=== PATIENT | male | born 1965 ===

== ENCOUNTER 2022-11-02 13:44 | Outpatient (RCR) | payer BC, SELFPAY | END 2023-01-31 23:59 | disposition home or self-care (01) | PROVIDERS: PCP Physician Assistant; Visit Provider Physician Assistant | DX: R29.898 Other symptoms and signs involving the musculoskeletal system (principal); M62.81 Muscle weakness (generalized); Z74.1 Need for assistance with personal care; Z51.89 Encounter for other specified aftercare | CPT/HCPCS: 97163 ==

== ENCOUNTER 2023-08-05 17:12 | Emergency (ER) | payer BC, SELFPAY ==
[2023-08-05 17:29] VITALS: BP 116/80; PULSE 103; RESP 20; TEMP 36.4; O2SAT 95; BMI 30.8
--- NOTE | 2023-08-05 17:53 | ED.GENADULT ---
HPI - General Adult General Time Seen by Provider: 17:53 Date Seen: 08/05/23 Chief complaint: Cough Stated complaint: Cough Time Seen by Provider: 08/05/23 17:53 Source: patient and RN notes reviewed Mode of arrival: ambulatory Limitations: no limitations History of Present Illness HPI narrative: Mr. Barone is a very pleasant 57-year-old gentleman with history of diabetes, hyperlipidemia, arthritis and tobacco use who comes to the emergency room for evaluation of a cough. Patient notes the onset of a cough greater than a week ago with worsening over the past 3 days. He states that at night now he has a hard time sleeping because of the cough. Does not feel that he is wheezing. Has occasionally felt warm but is unsure of a fever. This started with a sore throat and exposure to somebody that he knows with pneumonia. He has not had any diarrhea or vomiting. He denies ear pain or headache at this time. He is able to eat and drink. Very little production with the cough. He has had steroids in the past but for his arthritis and not for any lung issues. He denies a history of heart problems. Related Data Home Medications Medication Instructions Recorded Confirmed aspirin 81 mg chewable tablet 1 tab PO DAILY 08/05/23 08/05/23 metformin 500 mg tablet,extended 1,000 mg PO BID 08/05/23 08/05/23 release 24 hr pravastatin 10 mg tablet 10 mg PO DAILY 08/05/23 08/05/23 Previous Rx's Medication Instructions Recorded albuterol sulfate 90 mcg/actuation 2 inh inhalation Q6H PRN #1 ea 08/05/23 breath activated powder inhaler Allergies Allergy/AdvReac Type Severity Reaction Status Date / Time No Known Drug Allergies Allergy Verified 08/05/23 17:34 Review of Systems Status of ROS: Reports: 10 or more systems reviewed and unremarkable except as noted in History and below Const: Denies: fever, chills or fatigue ENMT: Reports: throat pain (Initially now improving), neck pain (When he cough) and nasal congestion; Denies: difficulty swallowing, hoarseness, ear pain or nasal discharge Cardio: Denies: shortness of breath with exertion Resp: Reports: cough; Denies: shortness of breath or wheezing GI: Denies: abdominal pain, vomiting or difficulty swallowing Musculo: Reports: neck pain (When he cough) Endo: Denies: fatigue Allergy/Immuno: Denies: wheezing PFSH PFSH Social History Smoking Status: Current every day smoker What tobacco products do you use: cigarettes Do you use any of these nicotine containing products: None How often do you have a drink containing alcohol: never How often do you have six or more drinks on one occasion: Never AUDIT-C Alcohol total score: 0 Non-prescribed substance use: denies use Exam Narrative: Exam Narrative: Alert and oriented. Very pleasant gentleman. [employer] . Eyes are clear. TMs bilaterally without erythema or fluid. Normal speech. Oral cavity without erythema or exudate. Moist mucous membranes noted. Heart with regular rate and rhythm. Lungs are clear bilaterally Lower extremity Const: Vital Signs, click to edit/add: Vital Signs - 24 hr 08/05/23 17:29 Temperature 97.6 F Pulse Rate [Pulse Oximeter] 103 H Respiratory Rate 20 Blood Pressure [Ri ght Upper Arm] 116/80 Pulse Oximetry 95 Oxygen Delivery Me thod Room Air Course Course ED Course: Differential diagnosis includes but is not limited to pneumonia, bronchitis, COPD exacerbation, viral respiratory infection, PE. At this time patient notes no length in periods of inactivity, history of DVT and is currently on aspirin daily. He also notes no calf tenderness or swelling. Negative wells criteria Will get chest x-ray at this time. He has tested negative for COVID/influenza/RSV. Will trial albuterol nebulizer. Reevaluation(s) Reevaluation #1: Patient notes he is much better after the nebulizer. Vital Signs Vital signs: Initial Vital Signs Temperature 97.6 F 08/05/23 17:29 Temperature Source Temporal Artery Scan 08/05/23 17:29 Pulse Rate 103 H 08/05/23 17:29 Respiratory Rate 20 08/05/23 17:29 Blood Pressure 116/80 08/05/23 17:29 Blood Pressure Mean 92 08/05/23 17:29 Blood Pressure Position Sitting 08/05/23 17:29 Pulse Oximetry 95 08/05/23 17:29 Oxygen Delivery Method Room Air 08/05/23 17:29 Vital Signs Temperature 97.6 F 08/05/23 17:29 Pulse Rate 103 H 08/05/23 17:29 Respiratory Rate 20 08/05/23 17:29 Blood Pressure 116/80 08/05/23 17:29 Pulse Oximetry 95 08/05/23 17:29 Oxygen Delivery Method Room Air 08/05/23 17:29 Temperature 97.6 F 08/05/23 17:29 Pulse Rate 103 H 08/05/23 17:29 Respiratory Rate 20 08/05/23 17:29 Blood Pressure 116/80 08/05/23 17:29 Pulse Oximetry 95 08/05/23 17:29 Oxygen Delivery Method Room Air 08/05/23 17:29 Medications Administered Medications: Generic Name Dose Route Start Last Admin Trade Name Claudia PRN Reason Stop Dose Admin Albuterol 2.5 mg 08/05/23 18:28 08/05/23 18:42 Albuterol Sulfate 2.5 Mg/3 Ml Vial.Neb NEB 08/05/23 18:29 2.5 mg ONCE ONE Administration Medical Decision Making MDM Narrative Medical decision making narrative: 1. Bronchitis-patient noted significant improvement with nebulizer treatment. I did speak to him about the illness only being 7 days at this point and that his chest x-ray is clear. I do not think he needs antibiotics but given his tobacco history would suggest steroids. He could declines this stating that he does not feel good on steroids. He is certainly not wheezing at this time and his oxygen levels are appropriate. No evidence of pneumonia, he has tested negative for COVID and influenza, he has no current risk factors or symptoms for DVT/PE. This most likely represents a URI induced bronchitis. He is very receptive to albuterol inhaler which will be sent to the pharmacy. Two puffs q.6 hours p.r.n.. He is advised to continue to monitor for worsening symptoms. 2. Tachycardia-normal O2 sats, normalized during his stay here and upon my examination heart rate in the 80s. Denies chest pain or shortness of breath. 3. Disposition-home at this time. Return for worsening symptoms. Medical Records Medical records reviewed: Yes I reviewed the patient's medical records Lab Data Lab results reviewed: Yes I reviewed the patient's lab results Labs: Lab Results 08/05/23 Range/Units 17:25 SARS-CoV-2 (PCR) Negative SARS-CoV-2 (Negative) Influenza Type A (PCR) Negative PCR FLU A (Negative) Influenza Type B (PCR) Negative PCR FLU B (Negative) RSV (PCR) Negative PCR RSV (Negative) Imaging Data Chest x-ray: Attestation: I have reviewed the pertinent imaging results. My impression: By my read, no obvious infiltrate Radiologist's impression: Normal cardiomediastinal silhouette and pulmonary vasculature. Lungs are well inflated. Unchanged 7 mm right upper lung calcified granuloma. No focal consolidation, pleural effusion, or pneumothorax. No acute osseous abnormality. IMPRESSION: No acute findings and no significant changes from the prior exam. Discharge Plan Discharge Clinical Impression: Bronchitis Patient Disposition: Home, Self-Care Condition: Improved Instructions: How to Use a Dry-Powder Inhaler (ED) Additional Instructions: Inhaler as needed. Return to the emergency room if your cough gets worse, you start running a high fever, or you are having a difficult time breathing. Prescriptions: New albuterol sulfate 90 mcg/actuation aerosol powdr breath activated 2 inh inhalation Q6H PRNQty: 1 0RF No Action pravastatin 10 mg tablet 10 mg PO DAILY aspirin 81 mg tablet,chewable 1 tab PO DAILY metformin 500 mg tablet extended release 24 hr 1,000 mg PO BID Follow Up/Referrals: Theresa Hudson PA [Primary Care Provider] - Stand Alone Forms: [employer] Info Instructions
[2023-08-05 18:12] LABS: PCR FLU A Negative PCR FLU A (Negative); PCR FLU B Negative PCR FLU B (Negative); PCR RSV Negative PCR RSV (Negative); SARS PCR* Negative SARS-CoV-2 (Negative)
--- NOTE | 2023-08-05 18:22 | CRLHL7_ITS ---
For Patients: As a result of the Century Cures Act, medical imaging exams and procedure reports are released immediately into your electronic medical record. You may view this report before your referring provider. If you have questions, please contact your health care provider. INDICATION: Cough. TECHNIQUE: Chest 2 views. COMPARISON: 04/28/2019 radiographs. FINDINGS: Normal cardiomediastinal silhouette and pulmonary vasculature. Lungs are well inflated. Unchanged 7 mm right upper lung calcified granuloma. No focal consolidation, pleural effusion, or pneumothorax. No acute osseous abnormality. IMPRESSION: No acute findings and no significant changes from the prior exam. Dictated by Malia Conrad MD @ 08/05/2023 6:54:33 PM (Electronically Signed)
[2023-08-05] MEDS: ALBUTEROL SULFATE 2.5 MG/3 ML VIAL.NEB NEB (18:42)
== END 2023-08-05 19:38 | disposition home or self-care (01) ==
PROVIDERS: Emergency Provider Family Medicine; PCP Physician Assistant
DX: J40 Bronchitis, not specified as acute or chronic (principal)
CPT/HCPCS: 71046; 87631; 94640; 99283; 99284

== ENCOUNTER 2024-12-30 21:20 | Emergency (ER) | payer BC, SELFPAY ==
--- OUTSIDE RECORDS SUMMARY | 2024-12-30 21:22 | XMS_ITS | Clinical Summary ---
Author Organization [facility] Address [address] [place] [address] Care Team Providers Care Blocking Machine Operator Name Role Phone Natalya Pabon M.D. Primary Care Provider Source Comments Patient records contain information from all sites at [facility]. For routine questions regarding patient records, call [phone] during business hours, M-F 8:00 AM - 5:00 PM Central Time. Record requests for emergency care only can be directed to [phone] at any time.[facility] Allergies No known active allergies Medications * This document contains information received from the source organization and may not represent a complete record from that organization. acetaminophen (TYLENOL) 500 mg tablet Take 1-2 tablets by mouth every 6 (six) hours as needed. 4 Active Accu-Chek Guide [facility] 3 Active blood-glucose meter [facility] [place] glucose meter, test strips and lancets covered by the patient insurance. Test 2 times per day. 0 Active Accu-Chek Guide test stripsIndicatio ns:Diabetes Mellitus Type 2 (HCC) 1 test by other route every morning. 100 strip 2 3 Active pravastatin (PRAVACHOL) 10 mg tabletIndicatio ns:Transient Ischemic Attack Take 1 tablet (10 mg total) by mouth daily. 90 tablet 3 3 Active aspirin 81 mg chewable tabletIndicatio ns:Transient Ischemic Attack Chew 1 tablet (81 mg total) daily. 90 tablet 3 3 Active metFORMIN XR (GLUCOPHAGE-XR) 500 mg 24 hr tabletIndicatio ns:Diabetes Mellitus Type 2 (HCC) Take 2 tablets (1,000 mg total) by mouth 2 (two) times a day with meals. 360 tablet 3 3 Active empagliflozin (Jardiance) 10 mg tabletIndicatio ns:Diabetes Mellitus Type 2 (HCC) Take 1 tablet (10 mg total) by mouth every morning before breakfast. 90 tablet 3 Active Accu-Chek Softclix Lancets lancets Use once daily in the morning 100 each 3 3 Active imiquimod (ALDARA) 5 % creamIndication s:Condyloma Acuminatum Apply 1 packet topically 3 (three) times a week. Wash hands prior to and following application. Apply thin layer over each wart that should be left on skin a minimum of 6-10 hours then the skin can be cleaned with soap. Use the cream until total clearance of warts or for a maximum of 16 weeks. 12 each 3 3 Active lisinopriL (PRINIVIL,ZESTR IL) 2.5 mg tabletIndicatio ns:Diabetes Mellitus Type 2 (HCC) Take 1 tablet (2.5 mg total) by mouth daily. 90 tablet 3 4 Active Active Problems Problem Noted Date Diagnosed Date Acute Disseminated Demyelination Unspecified Assessment & Plan (09/05/2023 11:13 AM MEDICAL CERTIFICATION SPECIALIST): Patient was seen by neurology who placed a referral to the peripheral nerve clinic. Assessment & Plan (06/05/2023 8:18 AM MEDICAL CERTIFICATION SPECIALIST): Patient is being followed by Neurology Nicotine Dependence Cigarettes 04/17/2023 Overview (04/17/2023): In conjunction with vaping Diverticulitis Of Large Inte sophie With Perforation And Abscess Without Bleeding 12/12/2022 12/12/2022 Dependence Polysubstance Remission 09/21/2022 12/12/2022 Assessment & Plan (09/05/2023 11:06 AM MEDICAL CERTIFICATION SPECIALIST): Patient states that he is still sober and in remission Assessment & Plan (12/12/2022 9:18 AM CDT): Patient had meth abuse, but has been sober for 94 days as of 12/12/22 Abscess Intestinal 02/25/2022 12/12/2022 Diabetes Mellitus Type 2 02/13/2022 023 Diverticulitis 02/13/2022 12/12/2022 Dysfunction Erectile 05/23/2018 12/12/2022 Unilateral Primary Osteoarth ritis First Carpometacarpal Joint Left 04/02/2018 12/12/2022 Overview (12/12/2022): 2015: Dr. John Mccauley did [facility] Joint injection, 1-2 month benefit. 2018: Dr. Calvillo did [facility] Joint injection. Alcohol Mild Use Disorder (Abuse) Uncomplicated 06/22/2014 12/12/2022 Depression 06/22/2014 12/12/2022 Fatigue 06/22/2014 12/12/2022 Assessment & Plan (09/05/2023 11:06 AM MEDICAL CERTIFICATION SPECIALIST): Due to grandchildren not letting him sleep Encounters * This document contains information received from the source organization and may not represent a complete record from that organization. Date Type Department Care Team Description 12/29/2024 Orders Only Department of Pulmonary Medicine in [place], [place] [address] [place] [address] Anderson Caceres M.D. 11/17/2024 Orders Only [facility] Natalya Portillo M.D. Diabetes Mellitus Type 2 (HCC) from Last 3 Months Immunizations Immunization Administration Dates Next Due Influenza, Injectable, Quadrivalent 01/2022,10/13/2021,04/28/2019,2014 RZV (SHINGRIX) 01/23/2022,10/18/2021 Rubella 09/09/1969 Td (Adult), adsorbed 11/02/2021,12/07/2010,09/22 Td, adsorbed, preservative f ree, (Adult) Unspecified 10/13/2021 Tdap 06/14/2010 influenza vaccine quad (FLUZONE/FLUARIX) (6 months and older)(PF) 05/18/2021,05/07/2018 Social History Tobacco Use Types Packs/Day Years Used Date Smoking Tobacco: Every Day Cigarettes 0.8 40 Started: 12/13/1984 Passive Smoke Exposure: Current Smokeless Tobacco: Former Chew Quit: 01/12/1986 Tobacco Cessation:Ready to Q uit: Not Asked; Counseling Given: Not Answered Comments:Tapered to 7 rolled cpd the past 2 weeks, vaping refillable n salt e- cig, 1 btl lasting over 1 month. Alcohol Use Standard Drinks/Week Comments Not Currently 44 (1 standard drink = 0.6 oz pu re alcohol) PHQ-2 Answer Date Recorded PHQ-2 Score 5 09/01/2023 Depression Answer Date Recor ded PHQ-9 Total Score (max 27) 8 09/01 Nutrition Answer Date Recorded Nutrition: EVOO Fat Source Unknown 09/14 Nutrition: Servings of Fruits/Vegetables per Day Not on file 09/14/2020 Dental Answer Date Recorded Dental: Regular Dentist Unknown 09/15/19 21 Sex and Gender Information Value Date Recorded Sex Assigned at Male 12/12/2022 8:25 AM CDT Legal Sex Male 10:44 PM MEDICAL CERTIFICATION SPECIALIST Gender Identity Male 12/12/2022 8:25 AM CDT Sexual Orientation Straight 12/12/2022 8: 25 AM CDT Last Filed Vital Signs Vital Sign Reading Time Taken Comments Blood Pressure 132/89 09/05/2023 10:46 AM MEDICAL CERTIFICATION SPECIALIST Pulse 95 09/05/2023 10:46 AM MEDICAL CERTIFICATION SPECIALIST Temperature 36.8 C (98.3 F) 06/05/2023 7:48 AM MEDICAL CERTIFICATION SPECIALIST Respiratory Rate 18 04/30/2017 1:40 AM CDT Oxygen Saturation - - Inhaled Oxygen Concentration - - Weight 92.1 kg (203 lb 0.7 oz) 09/05/2023 10:46 AM MEDICAL CERTIFICATION SPECIALIST Height 179 cm (5' 10.47) 07/04/2023 1:54 PM MEDICAL CERTIFICATION SPECIALIST Body Mass Index 28.74 07/04/2023 1:54 PM MEDICAL CERTIFICATION SPECIALIST Plan of Treatment Health Maintenance Due Date Last Done Comments CT Colonography 1966 Cologuard 1966 Dilated Eye Exam 1966 FIT 1966 Hepatitis C Screening 1966 Lung Cancer Screening 1966 Hepatitis B Vaccines (1 of 3 - 19+ 3-dose series) 1985 Pneumococcal vaccine (50+ years) (1 of 2 - PCV) 1985 Lipid (Cholesterol) Screening 01/15/2024 01/14/2023, 09/21/2022 Hemoglobin A1C 03/05/2024 09/05/2023, 05/16, 01/14/2023, Additional history exists COVID-19 Vaccine ( season) 2024 09/21/2022, 03/12/2022, 09/08/2021, Additional history exists Urine Albumin 04/03/2024 04/03/2023 Influenza Vaccine (#1) 2024 , 10/13/2021, 05/18/2021, Additional history exists Depression Screening (Annual PHQ-2) 07/15/2024 Creatinine Level (Kidney Function Test) 09/05/2024 09/05/2023, 01/29/2023, 01/14/2023, Additional history exists Diabetic Office Visit with Foot Exam 09/05/2024 09/05/2023, 09/05/2023, 12/12/2022, Additional history exists Office Visit for Blood Pressure Check / Re-check 09/05/2024 09/05/2023 Potassium Level 09/05/2024 09/05/2023, 01/12, 01/14/2023, Additional history exists Sodium Level 09/05/2024 09/05/2023, 01/12, 01/14/2023, Additional history exists Visit: Chronic Disease, age 18+ 09/05/2024 09/05/2023 Colonoscopy 03/18/2028 03/18/2018 Colorectal Cancer Screening 03/18/2028 DTaP,Tdap,and Td Vaccines (6 - Td or Tdap) 11/03/2031 11/02/2021, 10/13/2021, 12/07/2010, Additional history exists Zoster Vaccines Completed 01/23/2022, 10/18/2021 IPV Vaccines Aged Out No longer eligi ble based on patient's age to complete this topic Procedures Procedure Name Priority Date/Time Associated Diagnosis Comments HEMOGLOBIN A1C, B Routine 09/05/2023 11: 52 AM MEDICAL CERTIFICATION SPECIALIST Diabetes Mellitus Type 2 (HCC) BASIC METABOLIC PANEL, S/P Routine 09/05/2023 11:52 AM MEDICAL CERTIFICATION SPECIALIST Diabetes Mellitus Type 2 (HCC) ALBUMIN, RANDOM, U Routine 04/03/2023 8: 54 AM CDT Diabetes Mellitus Type 2 (HCC) LIPID PANEL, S Routine 01/14/2023 12:37 PM CDT Diabetes Mellitus Type 2 (HCC) from Last 3 Months or Most Recently Relevant to Health Maintenance Results * (ABNORMAL) Hemoglobin A1c (09/05/2023 11:52 AM MEDICAL CERTIFICATION SPECIALIST) Hemoglobin A1c, B 7.4(H) 4.2 - 5.6 % 09/05/2023 12:17 PM MEDICAL CERTIFICATION SPECIALIST OWAT Comment: Hemoglobin A1c values greater than or equal to 6.5 percent are diagnostic for diabetes mellitus. Diagnosis should be confirmed by repeat testing. In diabetic patients, HbA1c goals should be discussed with healthcare provider. Blood (Blood, Venous) 09/05/2023 11:52 AM MEDICAL CERTIFICATION SPECIALIST 09/05/2023 11:56 AM MEDICAL CERTIFICATION SPECIALIST us Natalya Pabon M.D. LAB BLOOD ADD-ON Final Result [facility] [address] [place] [address], [place] OWAT [facility] [place] [address] [place] [address] * (ABNORMAL) Basic Metabolic Panel (09/05/2023 11:52 AM MEDICAL CERTIFICATION SPECIALIST) Potassium, P 4.3 3.6 - 5.2 mmol/L 09/05/2023 12:17 PM MEDICAL CERTIFICATION SPECIALIST OWAT Sodium, P 139 135 - 145 mmol/L 09/05/2023 12:17 PM MEDICAL CERTIFICATION SPECIALIST OWAT Chloride, P 106 98 - 107 mmol/L 09/05/2023 12:17 PM MEDICAL CERTIFICATION SPECIALIST OWAT Bicarbonate, P 24 22 - 29 mmol/L 09/05/2023 12:17 PM MEDICAL CERTIFICATION SPECIALIST OWAT Anion Gap, P 9 7 - 15 09/05/2023 12:17 PM MEDICAL CERTIFICATION SPECIALIST OWAT BUN (Blood Urea Nitrogen), P 8 8 - 24 mg/dL 09/05/2023 12:17 PM MEDICAL CERTIFICATION SPECIALIST OWAT Creatinine 0.81 0.74 - 1.35 mg/dL 09/05/2023 12:17 PM MEDICAL CERTIFICATION SPECIALIST OWAT Estimated GFR (eGFR) >90 >=60 mL/min/BSA 09/05/2023 12:17 PM MEDICAL CERTIFICATION SPECIALIST OWAT Comment: Estimated GFR calculated using the 2020 CKD_EPI creatinine equation. Calcium, Total, P 9.4 8.6 - 10.0 mg/dL 09/05/2023 12:17 PM MEDICAL CERTIFICATION SPECIALIST OWAT Glucose, P 161(H) 70 - 140 mg/dL 09/05/2023 12:17 PM MEDICAL CERTIFICATION SPECIALIST OWAT Blood (Blood, Venous) 09/05/2023 11:52 AM MEDICAL CERTIFICATION SPECIALIST 09/05/2023 11:55 AM MEDICAL CERTIFICATION SPECIALIST Natalya Pabon M.D. LAB BLOOD ADD-ON Final Result [facility] [address] [place] [address], [facility] [place] [address] [place] [address] * Albumin, Random, Urine (04/03/2023 8:54 AM CDT) Microalbumin 16.0 mg/L 04/03/2023 9:50 AM CDT OWAT Creatinine 250 mg/dL 04/03/2023 9:50 AM CDT OWAT Albumin/Creatinin e Ratio 6 <17 mg/g 04/03/2023 9:50 AM CDT OWAT Urine (Urine, Midstream) 04/03/2023 8:54 AM CDT 04/03/2023 8:54 AM CDT Natalya Pabon M.D. LAB URINE ORDERABLES Fi nal Result [facility] [address] [place] [address], [facility] [place] [address] [place] [address] * (ABNORMAL) Lipid Panel (01/14/2023 12:37 PM CDT) Triglycerides 498(H) mg/dL 01/14/2023 1:19 PM CDT OWAT Comment: ----REFERENCE VALUE---- Normal: <150 mg/dL Borderline High: 150-199 mg/dL High: 200-499 mg/dL Very High: > or =500 mg/dL Cholesterol, Total 239(H) mg/dL 2022 1:19 PM CDT OWAT Comment: ----REFERENCE VALUE---- Desirable: < 200 mg/dL Borderline High: 200 - 239 mg/dL High: > or = 240 mg/dL Cholesterol, LDL, Calculated 111 mg/dL 01/14/2023 1:19 PM CDT OWAT Comment: ----REFERENCE VALUE---- Desirable: <100 mg/dL Above Desirable: 100-129 mg/dL Borderline High: 130-159 mg/dL High: 160-189 mg/dL Very High: >=190 mg/dL ----ADDITIONAL INFORMATION---- LDL cholesterol calculated using the Andrade/NIH equation. Cholesterol, HDL 42 >=40 mg/dL 01/15/20 1:19 PM CDT OWAT Cholesterol, Non-HDL, Calculated 197(H) mg/dL 01/14/2023 1:19 PM CDT OWAT Comment: ----REFERENCE VALUE---- Desirable: <130 mg/dL Above Desirable: 130-159 mg/dL Borderline High: 160-189 mg/dL High: 190-219 mg/dL Very High: > or =220 mg/dL Fasting (8 HR or more) no 01/14/2023 12:39 PM CDT OWAT Blood (Blood, Venous) 01/14/2023 12:37 PM CDT 01/14/2023 12:39 PM CDT Natalya Pabon M.D. LAB BLOOD ADD-ON Final Result [facility] [address] [place] [address], [place] [employer] [facility] [place] [address] [place] [address] from Last 3 Months or Most Recently Relevant to Health Maintenance Insurance [facility] Care Teams Blocking Machine Operator Relationship Specialty Start Date End Date Natalya Pabon M.D. [address] [place] [id number] PCP - General Family Medicine 11/30/22
--- OUTSIDE RECORDS SUMMARY | 2024-12-30 21:22 | XMS_ITS | Clinical Summary ---
Author Organization [email or web address] Address [address] [place] [address] Care Team Providers Care Stage Technician Name Role Phone Natalya Pabon MD Primary Care Provi bernice Allergies No known active allergies Medications Blood-Glucose MeterIndications:Po heather controlled diabetes mellitus (HC),Hyperglycemia Dispense glucose meter, test strips and lancets covered by the patient insurance. Test 2 times per day. 1 Device 0 Active aspirin chewable 81 mg chewable tabletIndications:T ype 2 diabetes mellitus without complication, without long-term current use of insulin (HC) Chew 1 Tablet (81 mg) by mouth once daily with a meal. 90 Tablet 3 Active metFORMIN (GLUCOPHAGE) 500 mg tabletIndications:t ype 2 diabetes mellitus Take 1 Tablet (500 mg) by mouth once daily with a meal. 90 Tablet 3 Active blood-glucose meterIndications:Ty pe 2 diabetes mellitus without complication, without long-term current use of insulin (HC) Dispense meter, test strips, lancets covered by pt ins. E11.9 NIDDM type II - Test 1 time/day 1 Each 3 Active ondansetron (ZOFRAN ODT) 4 mg disintegrating tabletIndications:N ausea Place 1 Tablet (4 mg) on the tongue two times daily. 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 John Mccauley did CMC Joint injection, 1-2 month benefit. 2018: Dr. Calvillo did CMC Joint injection. Alcohol abuse 06/22/2014 Depression 06/22/2014 Fatigue 06/22/2014 Diverticulitis of large inte sophie with perforation and abscess without bleeding Resolved Problems Problem Noted Date Diagnosed Date Resolved Date Sepsis 02/13/2022 09/21/2022 Immunizations Immunization Administration Dates Next Due COVID-19 vaccine (Moderna 10 0mcg/0.5mL) PF, MDV 03/12/2022 COVID-19 vaccine (Apricot Trees-Bio NTech 30mcg/0.3mL) 12YO+ BIVALENT PF, MDV 09/21/2022 COVID-19 vaccine (Ap[employer]ot [employer]rees-Bio NTech 30mcg/0.3mL) PF, MDV 09/08/2021,05/18/2021 Influenza, IIV4 05/18/2021,05/07/2018 Influenza, IIV4 (=>6mos) MDV 06/20/2022,10/14/19,04/28/2019 Rubella 09/09/1969 Td (Age >=7 Years) 11/02/2021,12/07/2010 Td Adult, Adsorbed, Pf, Lf Unspecified Tdap 06/14/2010 Tuberculin (PPD) 08/13/2007 Zoster (Shingrix-RZV, recombinant) 01/23/2022, Family History * Patient is adopted Medical History Relation Name Comments Other Father aneurysm Relation Name Status Comments Father (Age 65) aneurysm Mother Alive Social History Tobacco Use Types Packs/Day Years Used Date Smoking Tobacco: Every Day Cigarettes 0.5 30 Smokeless Tobacco: Never Tobacco Cessation:Ready to Q uit: No; Counseling Given: Yes Comments:5 to 6 cigs a day Alcohol Use Standard Drinks/Week Comments Not Currently 0 (1 standard drink = 0.6 oz pur e alcohol) occasional PHQ-2 Answer Date Recorded PHQ-2 TOTAL SCORE 2 09/21/2022 Social Connections Answer Date Recorded Frequency of Communication with Friends and Fami ly Not on file 09/12/2022 Financial Resource Strain Answer Date R ecorded Difficulty of Paying Living Expenses Not on file 07/15/2021 Difficulty of Paying Living Expenses Not on file 07/15/2021 Sex and Gender Information Value Date Recorded Sex Assigned at Not on file Legal Sex Male 5:23 AM FUNCTIONAL TESTER Gender Identity Not on file Sexual Orientation Not on file Occupation Industry Job Start Date Job End Date Not on file Not on file Not on file Not on file Obstetrics History Last Filed Vital Signs Vital Sign Reading Time Taken Comments Blood Pressure 126/81 01/29/2023 10:20 AM CDT Pulse 89 01/29/2023 10:20 AM CDT Temperature 36.7 C (98 F) 01/29/2023 10:10 AM CDT Respiratory Rate 18 01/29/2023 10:10 AM CDT Oxygen Saturation 94% 01/29/2023 10:20 AM CDT Inhaled Oxygen Concentration - - Weight 100.2 kg (221 lb) 01/29/2023 10:10 AM CDT Height 177.8 cm (5' 10) 01/29/2023 10:10 AM CDT Body Mass Index 31.71 01/29/2023 10:10 AM CDT Plan of Treatment Health Maintenance Due Date Last Done Comments Hepatitis B series for 19+ ( 1 of 3 - 19+ 3-dose series) 1985 Pneumococcal series for age 50+ (1 of 2 - PCV) 1985 Depression screening for age 12+ 09/22/2023 09/21/2022, 04/29/2019, 02/28/2018 BMI (ht and wt on same day) for age 18+ 11/07/2023 11/06/2022, 12/29/2019, 08/11/2019, Additional history exists COVID-19 vaccine series ( season) 2024 09/21/2022, 03/12/2022, 09/08/2021, Additional history exists Influenza Vaccine (Season Ended) 2025 06/20/2022, 10/13/2021, 05/18/2021, Additional history exists Lipids for age 45-75 09/22/2027 09/21/2022, 08/11/19 15 Colonoscopy through age 75 03/18/2028 03/18/2018 Tetanus booster 11/03/2031 11/02/2021, 07/2010 (Completed outside of [facility]), 12/07/2010, Additional history exists Tdap Completed 06/14/2010 Zoster (shingles) series for age 50+ Completed 01/23/2022, 10/18/2021 HIV for age 15-65 Completed 09/21/2022 Hepatitis C screening for ag e 18-79 Completed 09/21/2022 Procedures Procedure Name Priority Date/Time Associated Diagnosis Comments LC HIV-1/O/2, 4TH GENERATION Routine 09/21/2022 11:52 AM FUNCTIONAL TESTER Encounter for screening for HIV LC HCV ANTIBODY RFX TO QUANT PCR Routine 09/21/2022 11:52 AM FUNCTIONAL TESTER Need for hepatitis C screening test LC LIPID PANEL AND CHOL/HDL RATIO Routine 09/21/2022 11:52 AM FUNCTIONAL TESTER Hyperlipidemia, unspecified hyperlipidemia type COLONOSCOPY SCREENING Routine 03/18/2018 8:49 AM CDT Screening for colon cancer from Last 3 Months or Most Recently Relevant to Health Maintenance Results * (ABNORMAL) LC LIPID PANEL AND CHOL/HDL RATIO (09/21/2022 11:52 AM FUNCTIONAL TESTER) Cholesterol, Total 182 100 - 199 mg/dL 09/25/2022 3:[address] [facility] ([facility]) Triglycerides 265(H) 0 - 149 mg/dL 09/25/2022 3:09 PM CDT [facility] ([facility]) HDL Cholesterol 53 >39 mg/dL 3:09 PM T [facility] ([facility]) VLDL Cholesterol Jose 44(H) 5 - 40 mg/dL 09/25/2022 3:09 PM T [facility] ([facility]) LDL Chol Calc ([facility]) 85 0 - 99 mg/dL 09/25/2022 3:09 PM CDT [facility] ([facility]) T. Chol/HDL Ratio 3.4 0.0 - 5.0 ratio 09/25/2022 3:09 PM CDT [facility] ([facility]) Comment: T. Chol/HDL Ratio Men Women 1/2 Avg.Risk 3.4 3.3 Avg.Risk 5.0 4.4 2X Avg.Risk 9.6 7.1 3X Avg.Risk 23.4 11.0 Blood BLOOD SPECIMEN / Unknown Venipuncture / Unknown 09/21/2022 11:52 AM FUNCTIONAL TESTER 09/21/2022 11:53 AM FUNCTIONAL TESTER Narrative [facility] ([facility]) - 09/25/2022 3:09 PM CDT Performed at: [address] [place] [id number] Spray Foam Installer: Hamlet Harrison MD, Phone: [phone] Theresa ROGERS SEND OUTS Final Resu lt [facility] ([facility]) [address] [place] [address], * LC HCV ANTIBODY RFX TO QUANT PCR (09/21/2022 11:52 AM FUNCTIONAL TESTER) HCV Ab Non Reactive Non Reactive 09/25/2022 12:08 PM CDT [facility] ([facility]) Blood BLOOD SPECIMEN / Unknown Venipuncture / Unknown 09/21/2022 11:52 AM FUNCTIONAL TESTER 09/21/2022 11:53 AM FUNCTIONAL TESTER Narrative [facility] ([facility]) - 09/25/2022 12:08 PM CDT Performed at: [address] [place] [id number] Spray Foam Installer: Hamlet Harrison MD, Phone: [phone] Theresa ROGERS LABORATORY Final Resu lt Performing Organization Address City/[facility]/ZIP Co de Phone Number [facility] ([facility]) [address] [place] [address], * LC HIV-1/O/2, 4TH GENERATION (09/21/2022 11:52 AM FUNCTIONAL TESTER) HIV Scr 4th Gen Non Reactive Non Reactive 09/25/2022 10:10 AM CDT [facility] ([facility]) Comment: HIV Negative HIV-1/HIV-2 antibodies and HIV-1 p24 antigen were NOT detected. There is no laboratory evidence of HIV infection. Blood BLOOD SPECIMEN / Unknown Venipuncture / Unknown 09/21/2022 11:52 AM FUNCTIONAL TESTER 09/21/2022 11:53 AM FUNCTIONAL TESTER Narrative [facility] ([facility]) - 09/25/2022 10:10 AM CDT Performed at: [address] [place] [address] [id number] Spray Foam Installer: Hamlet Harrison MD, Phone: [phone] Theresa ROGERS [facility]ORAT[facility] Final Resu lt Performing Organization Address [facility] Co de Phone Number [facility] ([facility]) [address] [place] [address] * COLONOSCOPY SCREENING (03/18/2018 8:49 AM CDT) us Saqib Ortez MD GI PROCEDURE ORD Final Resu lt from Last 3 Months or Most Recently Relevant to Health Maintenance Insurance [address] [place] [address] [facility] [place] [address] [address]ERS COMP [address] [place] [address] WC [facility] [address] [place] [address] x5 (Home) [phone] x5 (Work) [employer] [address] [address] [place] [address] Advance Directives * Full Code (Latest Code Status on File) Date Activated Date Inactivated Comments 03/06/2022 11:10 AM 03/06/2022 3:28 PM Question Answer Comments Code Status Discussion: Reviewed Preferences * Full Code Date Activated Date Inactivated Comments 02/25/2022 3:50 AM 02/27/2022 3:19 PM Question Answer Comments Code Status Discussion: Reviewed Preferences * Full Code Date Activated Date Inactivated Comments 02/13/2022 6:08 PM 02/17/2022 4:19 PM Question Answer Comments Code Status Discussion: Reviewed Preferences Care Teams Stage Technician Relationship Specialty Start Date End Date Natalya Pabon MD [address] [place] [address] PCP - General Family Practice 12/05/22
--- OUTSIDE RECORDS SUMMARY | 2024-12-30 21:22 | XMS_ITS | Encounter Summary ---
Author Organization [facility] Address [address] [place] [address] Care Team Providers Care Travel Assistant Name Role Phone Natalya Pabon M.D. Primary Care Provider Reason for Referral * Outpatient (Routine) - Authorized Specialty Diagnoses / Procedures Referred By Contac t Referred To Contact Family Medicine Natalya Pabon M.D. [address] [place] [address] Phone: tel: fax: [facility] Referral ID Status Reason Start Date Expiration Date V isits Requested Visits Authorized [id number] Authorized 11/17/2024 05/19/2026 1 1 Encounter Details Date Type Department Care Team (Late st Contact Info) Description 11/17/2024 Orders Only [facility] PCP [facility] MNT Natalya Pabon M.D. [address], [place] [address] Diabetes Mellitus Type 2 (HCC) Social History Tobacco Use Types Packs/Day Years Used Date Smoking Tobacco: Every Day Cigarettes 0.8 40 Started: 12/13/1984 Passive Smoke Exposure: Current Smokeless Tobacco: Former Chew Quit: 01/12/1986 Comments:Tapered to 7 rolled cpd the past [...] AM CDT Legal Sex Male 10:44 PM PAPER BUNDLER Gender Identity Male 12/12/2022 8:25 AM CDT Sexual Orientation Straight 12/12/2022 8: 25 AM CDT documented as of this encounter Plan of Treatment Scheduled Orders Name Type Priority Associated Diagnoses Orde r Schedule Hemoglobin A1c Lab Routine Diabetes Mellitus Type 2 (HCC) Expected: 12/01/2024, Expires: 05/06/2025 Lipid Panel Lab Routine Diabetes Mellitus Type 2 (HCC) Expected: 12/01/2024, Expires: 05/06/2025 Scheduled Referrals Name Type Priority Associated Diagnoses Orde r Schedule Family Medicine office visit (clinic) Outpatient Referral Routine Expected: 12/01/2024, Expires: 05/06/2025 documented as of this encounter Visit Diagnoses Diagnosis Diabetes Mellitus Type 2 (HCC) documented in this encounter Additional Health Concerns Assessment Noted Time PHQ-9 Depression Total Score: 8 09/01/19 24 3:11 AM PAPER BUNDLER documented as of this encounter Care Teams Travel Assistant Relationship Specialty Start Date End Date Natalya Pabon M.D. [address] [place] [address] PCP - General Family Medicine 11/30/22 documented as of this encounter
--- OUTSIDE RECORDS SUMMARY | 2024-12-30 21:22 | XMS_ITS | Encounter Summary ---
Author Organization [facility] Address [address] [place] [address] Care Team Providers Care Protein Chemist Name Role Phone Natalya Pabon M.D. Primary Care Provider Reason for Referral * Outpatient (Routine) - Authorized Specialty Diagnoses / Procedures Referred By Contac t Referred To Contact Pulmonary Medicine Anderson Caceres M.D. [address] [place] [address] Phone: tel: fax: [facility] Region Referral ID Status Reason Start Date Expiration Date V isits Requested Visits Authorized [id number] Authorized 12/29/2024 06/30/2026 1 1 Scheduling Instructions Order generated by [place] [facility] Screening Eligibility Campaign Encounter Details Date Type Department Care Team (Late st Contact Info) Description 12/29/2024 Orders Only Department of Pulmonary Medicine in [place], [place] [address] [place] [phone] Anderson Caceres M.D. [address] [place] [phone] Social History Tobacco Use Types Packs/Day Years [...] AM CDT Legal Sex Male 10:44 PM CAMPGROUND HAND Gender Identity Male 12/12/2022 8:25 AM CDT Sexual Orientation Straight 12/12/2022 8: 25 AM CDT documented as of this encounter Plan of Treatment Scheduled Referrals Name Type Priority Associated Diagnoses Orde r Schedule [facility] Lung Cancer screening program referral Initial Outpatient Referral Routine Expected: 12/29/2024, Expires: 06/30/2025 documented as of this encounter Visit Diagnoses Not on filedocumented in this encounter Additional Health Concerns Assessment Noted Time PHQ-9 Depression Total Score: 8 09/01/19 24 3:11 AM CAMPGROUND HAND documented as of this encounter Care Teams Protein Chemist Relationship Specialty Start Date End Date Natalya Pabon M.D. [address] [address] PCP - General Family Medicine 11/30/22 documented as of this encounter
[2024-12-30 21:24] VITALS: BP 125/81; PULSE 112; RESP 17; TEMP 36.4; O2SAT 97; BMI 27.3
--- NOTE | 2024-12-30 21:48 | CRLHL7_ITS ---
For Patients: As a result of the Cures Act, medical imaging exams and procedure reports are released immediately into your electronic medical record. You may view this report before your referring provider. If you have questions, please contact your health care provider. Indication: Possible rock embedded in distal thigh/knee Technique: Two views of the left knee Comparison: None Findings/Impression: No acute radiographic abnormality or radiopaque foreign body identified. Dictated by Cullen Hay MD @ 12/30/2024 10:35:10 PM (Electronically Signed)
--- NOTE | 2024-12-30 21:56 | ED_ITS ---
HPI - Wound/Laceration General Date Seen: 12/30/24 Chief Complaint: Laceration/Wound Stated Complaint: wound above left knee Time Seen by Provider: 12/30/24 21:29 Source: patient Mode of arrival: ambulatory Limitations: no limitations History of Present Illness HPI narrative: Patient is a 59-year-old male presenting for laceration about 4 cm above his left knee. States he was working with a router tool when the stone broke and hit his left thigh. This occurred a few hours ago but the pain has been gradually getting worse so he was concerned. States his tetanus was 4 years ago. Pain is worse with walking. Bleeding is controlled at this time. Related Data Previous Rx's ?Medication ?Instructions ?Recorded albuterol sulfate 90 mcg/actuation 2 inh inhalation Q6 H PRN #1 ea 08/05/23 breath activated powder inhaler Allergies Allergy/AdvReac Type Severity Reaction Status Date / Time No Known Drug Allergies Allergy Verified 08/05/23 17:34 Review of Systems Status of ROS: Reports: 10 or more systems reviewed and unremarkable except as noted in History and below PFSH PFSH Social History Smoking Status: Current every day smoker What tobacco products do you use: cigarettes Do you use any of these nicotine containing products: None How often do you have a drink containing alcohol: never How often do you have six or more drinks on one occasion: Never AUDIT-C Alcohol total score: 0 Non-prescribed substance use: denies use Exam Narrative: Exam Narrative: Const: Well-nourished, Well-developed, in mild distress Eyes: PERRL, no conjunctival injection, and symmetrical lids HENT: Atraumatic external nose and ears. Moist mucous membranes. MSK:Extremities w/o deformity, Normal Active ROM. Some tenderness noted around the area of the laceration. No obvious bruising. Skin: Warm, Dry. 1.5 cm laceration to left thigh. Neuro: Normal Muscle tone, No focal neurological deficits. Psych: Awake, Alert, & Oriented x3. Appropriate mood and affect. Const: Vital Signs, click to edit/add: Vital Signs - 24 hr 12/30/24 21:24 Temperature 97.6 F Pulse Rate [Pulse Oximeter] 112 H Respiratory Rate 17 Blood Pressure [Ri ght Upper Arm] 125/81 Pulse Oximetry 97 Course Vital Signs Vital signs: Initial Vital Signs Temperature 97.6 F 12/30/24 21:24 Temperature Source Temporal Artery Scan 12/30/24 21:24 Pulse Rate 112 H 12/30/24 21:24 Respiratory Rate 17 12/30/24 21:24 Blood Pressure 125/81 12/30/24 21:24 Blood Pressure Mean 95 12/30/24 21:24 Blood Pressure Position Sitting 12/30/24 21:24 Pulse Oximetry 97 12/30/24 21:24 Vital Signs Temperature 97.6 F 12/30/24 21:24 Pulse Rate 112 H 12/30/24 21:24 Respiratory Rate 17 12/30/24 21:24 Blood Pressure 125/81 12/30/24 21:24 Pulse Oximetry 97 12/30/24 21:24 Temperature 97.6 F 12/30/24 21:24 Pulse Rate 112 H 12/30/24 21:24 Respiratory Rate 17 12/30/24 21:24 Blood Pressure 125/81 12/30/24 21:24 Pulse Oximetry 97 12/30/24 21:24 MDM - Wound/Laceration MDM Narrative Medical decision making narrative: Patient is a 59-year-old male presenting for laceration above his left knee. Considering it was a zackary stone that shattered going higher p.m. I will do an x-ray to look for any signs of the foreign body in his leg. X-ray was done reviewed by myself the radiologist showing no signs of a foreign body. I offered to close up the 1-1/2 cm sized wound but he declined at this time. States he is fine without stitches. The wound was closed up. He will be discharged. Tetanus is up-to-date Imaging Data Knee x-ray: Attestation: I have reviewed the pertinent imaging results. Radiologist's impression: No acute radiographic abnormality or radiopaque foreign body identified. Dictated by Cullen Hay MD @ 12/30/2024 10:35:10 PM Discharge Plan Discharge Clinical Impression: Laceration Patient Disposition: Home, Self-Care Condition: Stable Additional Instructions: Take Tylenol and ibuprofen for pain. You likely developed a contusion in the area that will slowly heal. Return for new or worsening symptoms Prescriptions: No Action albuterol sulfate 90 mcg/actuation aerosol powdr breath activated 2 inh inhalation Q6H PRNQty: 1 0RF Follow Up/Referrals: Theresa Hudson PA [Referring, Family Practice] Stand Alone Forms: MyHealth Info Instructions
== END 2024-12-30 23:23 | disposition home or self-care (01) ==
PROVIDERS: Emergency Provider Student in an Organized Health Care Education/Training Program
DX: S71.112A Laceration without foreign body, left thigh, initial encounter (principal); W26.9XXA Contact with unspecified sharp object(s), initial encounter
CPT/HCPCS: 73560; 99283

== ENCOUNTER 2025-02-03 13:44 | Outpatient (CLI) | payer BC, SELFPAY | END 2025-02-03 13:45 | disposition home or self-care (01) | PROVIDERS: Visit Provider Family Medicine | DX: S19.9XXA Unspecified injury of neck, initial encounter (principal); W19.XXXA Unspecified fall, initial encounter; Y93.89 Activity, other specified; Y92.038 Other place in apartment as the place of occurrence of the external cause | CPT/HCPCS: A0425; A0427 ==

== ENCOUNTER 2025-02-03 14:10 | Emergency (ER) | payer BC, SELFPAY ==
--- OUTSIDE RECORDS SUMMARY | 2025-02-03 14:14 | XMS_ITS | Encounter Summary ---
Author Organization [facility] Address [address] [place] [address] Care Team Providers Care Grinding Machine Operator Portable Name Role Phone Natalya Pabon M.D. Primary Care Provider Reason for Referral * Outpatient (Routine) - Authorized Specialty Diagnoses / Procedures Referred By Contac t Referred To Contact Pulmonary Medicine Anderson Caceres M.D. [address] [place] [address] Phone: tel: fax: [facility] Region Referral ID Status Reason Start Date Expiration Date V isits Requested Visits Authorized [id number] Authorized 12/29/2024 06/30/2026 1 1 Scheduling Instructions Order generated by [place] Lung Cancer Screening Eligibility Campaign Encounter Details Date Type Department Care Team (Late st Contact Info) Description 12/29/2024 Orders Only Department of Pulmonary Medicine in [place], [place] [address] [place] [phone] Anderson Caceres M.D. [address] [place] [phone] Social History Tobacco Use Types Packs/Day Years Used Date Smoking Tobacco: Every Day Cigarettes 0.8 40.1 Started: 12/13/1984 Passive Smoke Exposure: Current Smokeless Tobacco: Former Chew Quit: 01/12/1986 Comments:Tapered to 7 rolled cpd the past 2 weeks, vaping refillable n salt e- cig, 1 btl lasting over 1 month. Alcohol Use Standard Drinks/Week Comments Not Currently 44 (1 standard drink = 0.6 oz pu re alcohol) Depression Answer Date Recor ded PHQ-9 Total Score (max 27) 8 09/01 Sex and Gender Information Value Date Recorded Sex Assigned at Male 12/12/2022 8:25 AM CDT Legal Sex Male 10:44 PM DIRECTOR OF RESERVATIONS Gender Identity Male 12/12/2022 8:25 AM CDT [...] Total Score: 8 09/01/19 24 3:11 AM DIRECTOR OF RESERVATIONS documented as of this encounter Care Teams Grinding Machine Operator Portable Relationship Specialty Start Date End Date Natalya Pabon M.D. [address] [phone] PCP - General Family Medicine 11/30/22 documented as of this encounter
--- OUTSIDE RECORDS SUMMARY | 2025-02-03 14:14 | XMS_ITS | Clinical Summary ---
Author Organization [facility] Address [address] [place] [address] Care Team Providers Care X Ray Technician Name Role Phone Natalya Pabon M.D. Primary Care Provider Source Comments Patient records contain information from all sites at [facility]. For routine questions regarding patient records, call [phone] during business hours, M-F 8:00 AM - 5:00 PM Central Time. Record requests for emergency care only can be directed to [phone] at any time.[facility] Allergies No known active allergies Medications * This document contains information received from the source organization and may not represent a complete record from that organization. acetaminophen (TYLENOL) 500 mg tablet Take 1-2 tablets by mouth every 6 (six) hours as needed. 4 Active Acc[facility]-Chek Guide [facility] 3 Active blood-glucose meter [facility] Dispense glucose meter, test strips and lancets [...] Assessment & Plan (09/05/2023 11:13 AM MEDICAL LABORATORY ASSISTANT): Patient was seen by neurology who placed a referral to the peripheral nerve clinic. Assessment & Plan (06/05/2023 8:18 AM MEDICAL LABORATORY ASSISTANT): Patient is being followed by Neurology Nicotine Dependence Cigarettes 04/17/2023 Overview (04/17/2023): In conjunction with vaping Diverticulitis Of Large Inte sophie With Perforation And Abscess Without Bleeding 12/12/2022 12/12/2022 Dependence Polysubstance Remission 09/21/2022 12/12/2022 Assessment & Plan (09/05/2023 11:06 AM MEDICAL LABORATORY ASSISTANT): Patient states that he is still sober [...] Assessment & Plan (09/05/2023 11:06 AM MEDICAL LABORATORY ASSISTANT): Due to grandchildren not letting him sleep Encounters * This document contains information received from the source organization and may not represent a complete record from that organization. Date Type Department Care Team Description 12/29/2024 Orders Only Department of Pulmonary Medicine in [place], [place] [address] [place] [address] Anderson Caceres M.D. 11/17/2024 Orders Only [facility] [...] CDT Legal Sex Male 10:44 PM MEDICAL LABORATORY ASSISTANT Gender Identity Male 12/12/2022 8:25 AM CDT Sexual Orientation Straight 12/12/2022 8: 25 AM CDT Last Filed Vital Signs Vital Sign Reading Time Taken Comments Blood Pressure 132/89 09/05/2023 10:46 AM MEDICAL LABORATORY ASSISTANT Pulse 95 09/05/2023 10:46 AM MEDICAL LABORATORY ASSISTANT Temperature 36.8 C (98.3 F) 06/05/2023 7:48 AM MEDICAL LABORATORY ASSISTANT Respiratory Rate 18 04/30/2017 1:40 AM CDT Oxygen Saturation - - Inhaled Oxygen Concentration - - Weight 92.1 kg (203 lb 0.7 oz) 09/05/2023 10:46 AM MEDICAL LABORATORY ASSISTANT Height 179 cm (5' 10.47) 07/04/2023 1:54 PM MEDICAL LABORATORY ASSISTANT Body Mass Index 28.74 07/04/2023 1:54 PM MEDICAL LABORATORY ASSISTANT Plan of Treatment Health Maintenance Due Date Last Done Comments CT Colonography 1966 Cologuard 1966 Dilated Eye Exam 1966 FIT 1966 Hepatitis C Screening 1966 Lung Cancer Screening 1966 Hepatitis B Vaccines (1 of 3 - 19+ 3-dose series) 1985 Pneumococcal vaccine (50+ years) (1 of 2 - PCV) 1985 Lipid (Cholesterol) Screening 01/15/2024 01/14/2023, 09/21/2022 Hemoglobin A1C 03/05/2024 09/05/2023, 11/07/2022, 01/14/2023, Additional history exists COVID-19 Vaccine ( season) 2024 09/21/2022, 03/12/2022, 09/08/2021, Additional history exists Urine Albumin 04/03/2024 04/03/2023 Depression Screening (Annual PHQ-2) 07/15/2024 Creatinine Level [...] Visit: Chronic Disease, age 18+ 09/05/2024 09/05/2023 Influenza Vaccine (#1) 2025 , 10/13/2021, 05/18/2021, Additional history exists Colonoscopy 03/18/2028 03/18/2018 Colorectal Cancer Screening 03/18/2028 DTaP,Tdap,and Td Vaccines (6 - Td or Tdap) 11/03/2031 11/02/2021, 10/13/2021, 12/07/2010, Additional history exists Zoster Vaccines Completed 01/23/2022, 10/18/2021 IPV Vaccines Aged Out No longer eligi ble based on patient's age to complete this topic Procedures Procedure Name Priority Date/Time Associated Diagnosis Comments HEMOGLOBIN A1C, B Routine 09/05/2023 11: 52 AM MEDICAL LABORATORY ASSISTANT Diabetes Mellitus Type 2 (HCC) BASIC METABOLIC PANEL, S/P Routine 09/05/2023 11:52 AM MEDICAL LABORATORY ASSISTANT Diabetes Mellitus Type 2 (HCC) ALBUMIN, RANDOM, U Routine 04/03/2023 8: 54 AM CDT Diabetes Mellitus Type 2 (HCC) LIPID PANEL, S Routine 01/14/2023 12:37 PM CDT Diabetes Mellitus Type 2 (HCC) from Last 3 Months or Most Recently Relevant to Health Maintenance Results * (ABNORMAL) Hemoglobin A1c (09/05/2023 11:52 AM MEDICAL LABORATORY ASSISTANT) Hemoglobin A1c, B 7.4(H) 4.2 - 5.6 % 09/05/2023 12:17 PM MEDICAL LABORATORY ASSISTANT OWAT Comment: Hemoglobin A1c values greater than or equal to 6.5 percent are diagnostic for diabetes mellitus. Diagnosis should be confirmed by repeat testing. In diabetic patients, HbA1c goals should be discussed with healthcare provider. Blood (Blood, Venous) 09/05/2023 11:52 AM MEDICAL LABORATORY ASSISTANT 09/05/2023 11:56 AM MEDICAL LABORATORY ASSISTANT Natalya Pabon M.D. LAB BLOOD ADD-ON Final Result [facility] [address] [place] [address], [facility] OWAT in [place] [address] [place] [address] * (ABNORMAL) Basic Metabolic Panel (09/05/2023 11:52 AM MEDICAL LABORATORY ASSISTANT) Potassium, P 4.3 3.6 - 5.2 mmol/L 09/05/2023 12:17 PM MEDICAL LABORATORY ASSISTANT OWAT Sodium, P 139 135 - 145 mmol/L 09/05/2023 12:17 PM MEDICAL LABORATORY ASSISTANT OWAT Chloride, P 106 98 - 107 mmol/L 09/05/2023 12:17 PM MEDICAL LABORATORY ASSISTANT OWAT Bicarbonate, P 24 22 - 29 mmol/L 09/05/2023 12:17 PM MEDICAL LABORATORY ASSISTANT OWAT Anion Gap, P 9 7 - 15 09/05/2023 12:17 PM MEDICAL LABORATORY ASSISTANT OWAT BUN (Blood Urea Nitrogen), P 8 8 - 24 mg/dL 09/05/2023 12:17 PM MEDICAL LABORATORY ASSISTANT OWAT Creatinine 0.81 0.74 - 1.35 mg/dL 09/05/2023 12:17 PM MEDICAL LABORATORY ASSISTANT OWAT Estimated GFR (eGFR) >90 >=60 mL/min/BSA 09/05/2023 12:17 PM MEDICAL LABORATORY ASSISTANT OWAT Comment: Estimated GFR calculated using the 2020 CKD_EPI creatinine equation. Calcium, Total, P 9.4 8.6 - 10.0 mg/dL 09/05/2023 12:17 PM MEDICAL LABORATORY ASSISTANT OWAT Glucose, P 161(H) 70 - 140 mg/dL 09/05/2023 12:17 PM MEDICAL LABORATORY ASSISTANT OWAT Blood (Blood, Venous) 09/05/2023 11:52 AM MEDICAL LABORATORY ASSISTANT 09/05/2023 11:55 AM MEDICAL LABORATORY ASSISTANT Natalya Pabon M.D. LAB BLOOD ADD-ON Final Result [facility] [address] [place] [id number], [facility] OWAT [facility] in [place] [address] [place] [id number] * Albumin, Random, Urine (04/03/2023 8:54 AM CDT) Microalbumin 16.0 mg/L 04/03/2023 9:50 AM CDT OWAT Creatinine 250 mg/dL 04/03/2023 9:50 AM CDT OWAT Albumin/Creatinin e Ratio 6 <17 mg/g 04/03/2023 9:50 AM CDT OWAT Urine (Urine, Midstream) 04/03/2023 8:54 AM CDT 04/03/2023 8:54 AM CDT us Natalya Pabon M.D. LAB URINE ORDERABLES Fi nal Result [facility] [address] [place] [address], [place] OWAT [facility] in [place] [address] [place] [address] * (ABNORMAL) Lipid Panel (01/14/2023 12:37 PM [...] Pabon M.D. LAB BLOOD ADD-ON Final Result [facility] [address] [place] [address], [place] OW[place] in [place] [address] [place] [address] from Last 3 Months or Most Recently Relevant to Health Maintenance Insurance [facility] [place] [address] Care Teams X Ray Technician Relationship Specialty Start Date End Date Natalya Pabon M.D. [address] [place] [address] PCP - General Family Medicine 11/30/22
--- OUTSIDE RECORDS SUMMARY | 2025-02-03 14:14 | XMS_ITS | Clinical Summary ---
Author Organization [facility] Address [address] [place] [id number] Care Team Providers Care Labor Standards Director Name Role Phone Natalya Pabon MD Primary [...] 10 0mcg/0.5mL) PF, MDV 03/12/2022 COVID-19 vaccine ([employer] NTech 30mcg/0.3mL) 12YO+ BIVALENT PF, MDV 09/21/2022 COVID-19 vaccine ([employer] NTech 30mcg/0.3mL) PF, MDV 09/08/2021,05/18/2021 Influenza, IIV4 [...] on file Legal Sex Male 5:23 AM CHARGE PREPARATION TECHNICIAN Gender Identity Not on file Sexual Orientation [...] 03/12/2022, 09/08/2021, Additional history exists Influenza Vaccine (#1) 2025 , 10/13/2021, 05/18/2021, Additional history exists Lipids for age 45-75 09/22/2027 09/21/2022, 08/11/19 15 Colonoscopy through age 75 03/18/2028 03/18/2018 Tetanus booster 11/03/2031 11/02/2021, 07/2010 (Completed outside of [facility]), 12/07/2010, Additional history exists Zoster (shingles) series for age 50+ Completed 01/23/2022, 10/18/2021 HIV for age 15-65 Completed 09/21/2022 Hepatitis C screening for ag e 18-79 Completed 09/21/2022 Procedures Procedure Name Priority Date/Time Associated Diagnosis Comments LC HIV-1/O/2, 4TH GENERATION Routine 09/21/2022 11:52 AM CHARGE PREPARATION TECHNICIAN Encounter for screening for HIV LC HCV ANTIBODY RFX TO QUANT PCR Routine 09/21/2022 11:52 AM CHARGE PREPARATION TECHNICIAN Need for hepatitis C screening test LC LIPID PANEL AND CHOL/HDL RATIO Routine 09/21/2022 11:52 AM CHARGE PREPARATION TECHNICIAN Hyperlipidemia, unspecified hyperlipidemia type COLONOSCOPY SCREENING Routine 03/18/2018 8:49 AM CDT Screening for colon cancer from Last 3 Months or Most Recently Relevant to Health Maintenance Results * (ABNORMAL) LC LIPID PANEL AND CHOL/HDL RATIO (09/21/2022 11:52 AM CHARGE PREPARATION TECHNICIAN) Cholesterol, Total 182 100 - 199 mg/dL 09/25/2022 3:09 PM T [facility] Triglycerides 265(H) 0 - 149 mg/dL 09/25/2022 3:09 PM CDT [facility] HDL Cholesterol 53 >39 mg/dL 3:09 PM T [facility] VLDL Cholesterol Jose 44(H) 5 - 40 mg/dL 09/25/2022 3:09 PM T [facility] LDL Chol Calc ([facility]) 85 0 - 99 mg/dL 09/25/2022 3:09 PM CDT [facility] T. Chol/HDL Ratio 3.4 0.0 - 5.0 ratio 09/25/2022 3:09 PM CDT [facility] Comment: T. Chol/HDL Ratio Men Women 1/2 Avg.Risk 3.4 3.3 Avg.Risk 5.0 4.4 2X Avg.Risk 9.6 7.1 3X Avg.Risk 23.4 11.0 Blood BLOOD SPECIMEN / Unknown Venipuncture / Unknown 09/21/2022 11:52 AM CHARGE PREPARATION TECHNICIAN 09/21/2022 11:53 AM CHARGE PREPARATION TECHNICIAN Narrative [facility] - 09/25/2022 3:09 PM CDT Performed at: [address] [place] [id number] Punch Press Operator Helper: Hamlet Harrison MD, Phone: [phone] Theresa ROGERS SEND OUTS Final Resu lt Performing Organization Address [facility] Co de Phone Number [facility] [address] [place] [address], * LC HCV ANTIBODY RFX TO QUANT PCR (09/21/2022 11:52 AM CHARGE PREPARATION TECHNICIAN) HCV Ab Non Reactive Non Reactive 09/25/2022 12:08 PM CDT [facility] Blood BLOOD SPECIMEN / Unknown Venipuncture / Unknown 09/21/2022 11:52 AM CHARGE PREPARATION TECHNICIAN 09/21/2022 11:53 AM CHARGE PREPARATION TECHNICIAN Narrative [facility] - 09/25/2022 12:08 PM CDT Performed at: [address] [place] [id number] Punch Press Operator Helper: Hamlet Harrison MD, Phone: [phone] Theresa ROGERS LABORATORY Final Resu lt Performing Organization Address City/[facility]/ZIP Co de Phone Number [facility] ([facility]) [address] [place] [address], * LC HIV-1/O/2, 4TH GENERATION (09/21/2022 11:52 AM CHARGE PREPARATION TECHNICIAN) HIV Scr 4th Gen Non Reactive Non Reactive 09/25/2022 10:10 AM CDT [facility] ([facility]) Comment: HIV Negative HIV-1/HIV-2 antibodies and HIV-1 p24 antigen were NOT detected. There is no laboratory evidence of HIV infection. Blood BLOOD SPECIMEN / Unknown Venipuncture / Unknown 09/21/2022 11:52 AM CHARGE PREPARATION TECHNICIAN 09/21/2022 11:53 AM CHARGE PREPARATION TECHNICIAN Narrative [facility] ([facility]) - 09/25/2022 10:10 AM CDT Performed at: [address] [place] [id number] Punch Press Operator Helper: Hamlet Harrison MD, Phone: [phone] Theresa ROGERS LABORATORY Final Resu lt Performing Organization Address [facility]/ZIP Co de Phone Number [facility] ([facility]) [address] [place] [address] * COLONOSCOPY SCREENING (03/18/2018 8:49 AM CDT) Saqib Ortez MD GI PROCEDURE ORD Final Resu lt from Last 3 Months or Most Recently Relevant to Health Maintenance Insurance [address] [place] [id number] [facility] WORKERS COMP WORKERS [address] [address] [place] [address] x5 (Home) [phone] x5 (Work) ESCREEN ATTN AP [address] [address] [place] [address] Advance Directives * Full Code (Latest Code [...] Code Status Discussion: Reviewed Preferences Care Teams Labor Standards Director Relationship Specialty Start Date End Date Natalya Pabon MD [address] [address] PCP - General Family Practice 12/05/22
[2025-02-03 14:18] VITALS: BP 133/88; PULSE 97; RESP 16; TEMP 36.6; O2SAT 99; BMI 27.5
--- NOTE | 2025-02-03 14:27 | CRLHL7_ITS ---
For Patients: As a result of the Cures Act, medical imaging exams and procedure reports are released immediately into your electronic medical record. You may view this report before your referring provider. If you have questions, please contact your health care provider. INDICATION: Fall. TECHNIQUE: CT head without contrast. COMPARISON: None. FINDINGS: There is no mass effect or midline shift. No hydrocephalus. No CT evidence of acute hemorrhage or infarction. No abnormal extra-axial fluid collection. Bone windows show no acute calvarial fracture. Paranasal sinuses and orbits as imaged are unremarkable. Peripherally calcified but predominantly fat containing lesion consistent with benign etiology in the right frontal temporal scalp. IMPRESSION: No acute intracranial abnormality. Dictated by Сергей Gonzalez MD @ 02/03/2025 3:20:30 PM Please note that all CT scans at this facility use dose modulation, iterative reconstruction, and/or weight-based dosing when appropriate to reduce radiation dose to as low as reasonably achievable. Dictated by: Сергей Gonzalez MD @ 02/03/2025 15:20:38 (Electronically Signed)
--- NOTE | 2025-02-03 14:27 | CRLHL7_ITS ---
For Patients: As a result of the Cures Act, medical imaging exams and procedure reports are released immediately into your electronic medical record. You may view this report before your referring provider. If you have questions, please contact your health care provider. INDICATION: Fall. Lower neck pain. TECHNIQUE: CT cervical spine without contrast. COMPARISON: None. FINDINGS: Mild to advanced multilevel degenerative changes with disc space narrowing, disc osteophyte complex formation, uncovertebral hypertrophy and facet arthropathy. Mild reversal of the cervical lordosis at C5 is likely degenerative in nature. No evidence of acute cervical spine fracture. No other osseous abnormality. Paraspinal soft tissues as imaged are unremarkable. Visualized lung apices are clear. IMPRESSION: No acute cervical spine fracture. Dictated by Сергей Gonzalez MD @ 02/03/2025 3:13:20 PM Please note that all CT scans at this facility use dose modulation, iterative reconstruction, and/or weight-based dosing when appropriate to reduce radiation dose to as low as reasonably achievable. Dictated by: Сергей Gonzalez MD @ 02/03/2025 15:13:34 (Electronically Signed)
--- NOTE | 2025-02-03 14:30 | ED_ITS ---
HPI - Fall General Date Seen: 02/03/25 Chief Complaint: Fall/Minor Trauma Stated Complaint: fall Time Seen by Provider: 02/03/25 14:20 Source: family and EMS Mode of arrival: EMS Limitations: no limitations History of Present Illness HPI Narrative: Patient is a 59-year-old male presenting to the emergency department after a fall. He states earlier today he slipped in some mud and fell to his right side. He states he caught himself with his right arm but since then has been having neck pain. States the pain seems to be in his lower neck. He went to urgent care and staff there thought he was acting altered and were concerned due to the fall so they called EMS to bring him to the emergency department. Per EMS he was answering all questions for them appropriately. He also had stable vital signs. Patient admitted to smoking meth this morning and drinking 1 alcoholic beverage. He states it was a hard Mountain Dew. Denies hitting his head. Denies fevers, chills, chest pain, shortness of breath, arm pain, numbness. Does have left arm weakness but that is been a chronic issue for the past 6 years that he has seen a provider for multiple times. They have been unable to determine was causing the weakness. Denies any worsening weakness today. Related Data Home Medications ?Medication ?Instructions ?Recorded ?Confirmed No Known Home Medications 02/03/2501/13 Allergies Allergy/AdvReac Type Severity Reaction Status Date / Time No Known Drug Allergies Allergy Verified 02/03/25 13:33 Review of Systems Status of ROS: Reports: 10 or more systems reviewed and unremarkable except as noted in History and below PFSH PFS Social History Smoking Status: Current every day smoker What tobacco products do you use: cigarettes Do you use any of these nicotine containing products: None How often do you have a drink containing alcohol: never How often do you have six or more drinks on one occasion: Never AUDIT-C Alcohol total score: 0 Non-prescribed substance use: denies use service: No Exam Narrative: Exam Narrative: Const: Well-nourished, Well-developed, in mild distress Eyes: PERRL, no conjunctival injection, and symmetrical lids HENT: Atraumatic external nose and ears. Moist mucous membranes. Neck: Symmetric, trachea midline, No thyromegaly. Mild tenderness to the lower neck both right paraspinal and a little bit midline CVS: RRR, No murmurs or gallops. Peripheral pulses 2+ and equal in all extremities RESP: Unlabored respiratory effort. Clear to auscultation bilaterally. GI: Nontender/Nondistended, No rebound or guarding. MSK:Extremities w/o deformity, Normal Active ROM Skin: Warm, Dry. No rashes or lesions. Neuro: Normal Muscle tone, No focal neurological deficits other than slight weakness to his left arm has no different from his baseline he states. Psych: Awake, Alert, & Oriented x3. Appropriate mood and affect. Const: Vital Signs, click to edit/add: Vital Signs - 24 hr 02/03/25 14:18 Temperature 97.8 F Pulse Rate [Pulse Oximeter] 97 Respiratory Rate 16 Blood Pressure [Ri ght Upper Arm] 133/88 Pulse Oximetry 99 Oxygen Delivery Me thod Room Air Course Vital Signs Vital signs: Initial Vital Signs Temperature 97.8 F 02/03/25 14:18 Temperature Source Temporal Artery Scan 02/03/25 14:18 Pulse Rate 97 02/03/25 14:18 Respiratory Rate 16 02/03/25 14:18 Blood Pressure 133/88 02/03/25 14:18 Blood Pressure Mean 103 02/03/25 14:18 Blood Pressure Position Sitting 02/03/25 14:18 Pulse Oximetry 99 02/03/25 14:18 Oxygen Delivery Method Room Air 02/03/25 14:18 Vital Signs Temperature 97.8 F 02/03/25 14:18 Pulse Rate 97 02/03/25 14:18 Respiratory Rate 16 02/03/25 14:18 Blood Pressure 133/88 02/03/25 14:18 Pulse Oximetry 99 02/03/25 14:18 Oxygen Delivery Method Room Air 02/03/25 14:18 Temperature 97.8 F 02/03/25 14:18 Pulse Rate 97 02/03/25 14:18 Respiratory Rate 16 02/03/25 14:18 Blood Pressure 133/88 02/03/25 14:18 Pulse Oximetry 99 02/03/25 14:18 Oxygen Delivery Method Room Air 02/03/25 14:18 MDM - Fall MDM Narrative Medical decision making narrative: Patient is a 59-year-old male presenting after a fall. He was sent in via EMS for concerns of altered mental status. Per EMS and my own exam he does not appear to be altered at all. He is answering all questions appropriately. He does admit to smoking meth this morning he may have been altered due to that when he was 1st evaluated. Will do a CT scan of his cervical spine to look for any fractures. Considering the questionable initial altered mental status will also order a CT scan of the head, CBC, BMP, magnesium, EtOH. This left arm weakness is chronic and does not require further evaluation in the emergency department. Lab work returned showing no acute concerning abnormalities. Imaging shows no acute concerning abnormalities as reviewed by myself and the radiologist. Patient is able ambulate around the department. Has full range of motion of his neck. Showing no signs of altered mental status. I believe he is safe for discharge. Lab Data Labs: Lab Results 02/03/25 Range/Units 14:39 WBC 6.88 (4.50-11.00) K/uL RBC 4.93 (4.30-5.90) m/uL Hgb 14.9 (13.5-17.5) gm/dL Hct 45.1 (37.0-53.0) % MCV 92 (80-100) fL MCH 30 (26-34) pg MCHC 33 (32-36) gm/dL RDW Coeff of Melissa 12.7 (11.5-15.5) % Plt Count 276 (140-440) K/uL Neut % (Auto) 59.2 (42.0-72.0) % Lymph % (Auto) 27.5 (20-44) % [facility] % (Auto) 8.0 (0.0-11.0) % Eos % (Auto) 3.8 (0.0-7.0) % Baso % (Auto) 0.3 (0.0-3.0) % Neut # (Auto) 4.08 (1.7-7.0) K/uL Lymph # (Auto) 1.89 (0.90-2.90) K/uL [facility] # (Auto) 0.60 (0.00-0.90) K/UL Eos # (Auto) 0.26 (0.00-0.50) K/uL Baso # (Auto) 0.02 (0.00-0.30) K/uL Abs Immat Gran (auto) 0.08 (0.00-0.30) K/uL Imm/Tot Granulo (auto) 1.2 % Sodium 141 (135-149) mmol/L Potassium 4.0 (3.6-5.1) mmol/L Chloride 109 (96-114) mmol/L Carbon Dioxide 28 (20-32) mmol/L Anion Gap 4 L (7-15) mEq/L BUN 13 (7-30) mg/dL Creatinine 0.9 (0.5-1.5) mg/dL Estimated Creat Clear 92.38 Estimated GFR 99 ml/min Glucose 149 H (60-115) mg/dL Calcium 9.2 (8.4-10.6) mg/dL Magnesium 2.3 (1.5-2.6) mg/dL Ethyl Alcohol < 0.01 (0.01-0.03) % Imaging Data CT scan head: Attestation: I have reviewed the pertinent imaging results. Radiologist's impression: No acute intracranial abnormality. Dictated by Сергей Gonzalez MD @ 02/03/2025 3:20:30 PM Please note that all CT scans at this facility use dose modulation, iterative reconstruction, and/or weight-based dosing when appropriate to reduce radiation dose to as low as reasonably achievable. Dictated by: Сергей Gonzalez MD @ 02/03/2025 15:20:38 CT scan cervical spine: Attestation: I have reviewed the pertinent imaging results. Radiologist's impression: No acute cervical spine fracture. Dictated by Сергей Gonzalez MD @ 02/03/2025 3:13:20 PM Please note that all CT scans at this facility use dose modulation, iterative reconstruction, and/or weight-based dosing when appropriate to reduce radiation dose to as low as reasonably achievable. Dictated by: Сергей Gonzalez MD @ 02/03/2025 15:13:34 Discharge Plan Discharge Clinical Impression: Cervical muscle strain Qualifiers: Encounter type: initial encounter Qualified Code(s): S16.1XXA - Strain of muscle, fascia and tendon at neck level, initial encounter Patient Disposition: Home, Self-Care Condition: Stable Instructions: Cervical Strain (DC) Additional Instructions: Take Tylenol and ibuprofen for your pain. Return to emergency department for new or worsening symptoms. Prescriptions: No Action No Known Home Medications Follow Up/Referrals: Provider,Not a Local [Primary Care Provider, Family Practice] Stand Alone Forms: [facility] Info Instructions
[2025-02-03 14:52] LABS: Hematocrit* 45.1 % (37.0-53.0); Hemoglobin* 14.9 gm/dL (13.5-17.5); Immature Granulocytes Abs Auto 0.08 K/uL (0.00-0.30); Immature Granulocytes Pct Auto 1.2 %; Lymphocytes Absolute Auto 1.89 K/uL (0.90-2.90); Mean Corpuscular HGB Conc 33 gm/dL (32-36); Mean Corpuscular Hemoglobin 30 pg (26-34); Mean Corpuscular Volume 92 fL (80-100); RDW Coefficient of Variation % 12.7 % (11.5-15.5); Red Blood Count* 4.93 m/uL (4.30-5.90); White Blood Count* 6.88 K/uL (4.50-11.00)
[2025-02-03 14:55] LABS: Slide Review Reflex No
[2025-02-03 15:06] LABS: Chloride* 109 mmol/L (96-114); Sodium* 141 mmol/L (135-149)
[2025-02-03 15:07] LABS: Potassium* 4.0 mmol/L (3.6-5.1)
[2025-02-03 15:09] LABS: Anion Gap 4 mEq/L (7-15); Blood Urea Nitrogen* 13 mg/dL (7-30); Calcium* 9.2 mg/dL (8.4-10.6); Carbon Dioxide* 28 mmol/L (20-32); Creatinine* 0.9 mg/dL (0.5-1.5); Est. Creatinine Clearance* 92.38; Estimated Glomerular Filt Rate 99 ml/min; Glucose* 149 mg/dL (60-115)
[2025-02-03 15:10] LABS: Ethanol* < 0.01 % (0.01-0.03)
== END 2025-02-03 15:37 | disposition home or self-care (01) ==
PROVIDERS: Emergency Provider Student in an Organized Health Care Education/Training Program
DX: S16.1XXA Strain of muscle, fascia and tendon at neck level, initial encounter (principal); W01.0XXA Fall on same level from slipping, tripping and stumbling without subsequent striking against object, initial encounter
CPT/HCPCS: 36415; 70450; 72125; 80048; 82077; 83735; 85025; 99284